=== PATIENT | female | born 1980 | race Caucasian/White ===

== ENCOUNTER 2020-11-25 08:49 | Emergency (ER) | payer MEDICAID, OTHER ==
[~2020-11-25] VITALS: Ht 157.5 cm; Wt 63.5 kg
[2020-11-25 09:11] LABS: Urine WBC None Seen /hpf (0 - 5)
[2020-11-25 09:25] LABS: Urine Bacteria NONE SEEN /hpf (None Seen); Urine Blood Negative /uL (Negative); Urine Specific Gravity 1.005 (1.001-1.035)
[2020-11-25] MEDS ORDERED: cefTRIAXone SOD 1,000 MG VL IM ONE (11:30)
[2020-11-25] MEDS ORDERED: DOXYCYCLINE 100 MG TAB/CAP PO ONE (11:30)
[2020-11-25 14:59] VITALS: BP 124/82
== END 2020-11-25 15:05 | disposition home or self-care (01) ==
LOC: ER 08:51
DX: J18.9 Pneumonia, unspecified organism (principal); Z20.822 Contact with and (suspected) exposure to COVID-19
CPT/HCPCS: 36415; 71045; 81001; 81025; 87426; 96372; 99284; J0696